=== PATIENT | female | born 1975 | race Caucasian/White ===

== ENCOUNTER → 2016-12-22 | Outpatient (CLI) | payer OTHER ==
[2015-08-03 16:28] VITALS: BP 121/77
[~2016-12-22] MED LIST: HYDR-971 PO; NAPR500T PO; PNV1TABL25 PO
--- NOTE | 2016-12-22 09:03 | RAD ---
Right upper quadrant abdominal ultrasound, 12/22/2016: History: Follow-up hemangiomas The gallbladder is within normal limits in size. There is no sonographic evidence of cholelithiasis. The gallbladder wall is mildly thickened measuring 4 mm. The common hepatic duct measures 4 mm which is within normal limits. No intrahepatic biliary ductal dilatation is seen. There is a 6 mm echogenic focus present anteriorly in the inferior aspect of the left lobe of the liver. There is an additional 1.2 cm echogenic focus in the anterior aspect of the left lobe. The sonographic features are nonspecific, but are compatible with the given history of hemangiomas. No previous ultrasound studies are available at this time for. Comparison. No other hepatic lesion is seen. The visualized portions of the pancreas and right kidney are unremarkable. IMPRESSION: 1. Mild gallbladder wall thickening without evidence of gallstones. This is a nonspecific finding which can be due to a variety of causes including liver disease, hypoproteinemia, renal disease or cholecystitis. 2. Two small echogenic foci in the liver are compatible with the given history of hepatic hemangiomas.
== END | disposition home or self-care (01) ==
LOC: US 06:48
PROVIDERS: ATTEND Family Medicine
DX: N28.9 Disorder of kidney and ureter, unspecified (principal); E77.8 Other disorders of glycoprotein metabolism
CPT/HCPCS: 76705

== ENCOUNTER → 2017-01-14 | Outpatient (CLI) | payer OTHER ==
[2015-08-03 16:28] VITALS: BP 121/77
--- NOTE | 2017-01-14 15:12 | RAD ---
Indication pelvic pain. Initially transabdominal scans were obtained. Initial transabdominal scans were supplemented with transvaginal scans. The uterus measures approximately 11 x 7.2 x 6 cm. The endometrium is mildly thickened at 1.6 cm. The right ovary contains a dominant 1.5 cm cyst. The left ovary was not visualized. No free fluid was seen in the pelvis. IMPRESSION: Mildly thickened endometrium. Right ovarian cyst. Nonvisualization of the left ovary
--- NOTE | 2017-01-14 15:28 | RAD ---
DATE: 01/14/2017 EXAM: DIGITAL SCREEN BILAT W/CAD HISTORY: Routine screening COMPARISON: Baseline study This study was interpreted with the benefit of Computerized Aided Detection (CAD). The breast parenchyma shows scattered fibroglandular densities. Breast parenchyma level B. FINDINGS: No breast mass is identified. No suspicious microcalcifications are seen. Benign-appearing lymph nodes are projected over the left axillary region. IMPRESSION: There is no mammographic evidence of malignancy in either breast. BI-RADS CATEGORY: 1 NEGATIVE RECOMMENDED FOLLOW-UP: 12M 12 MONTH FOLLOW-UP PQRS compliance statement: Patient information was entered into a reminder system with a target due date for the next mammogram. Mammography is a sensitive method for finding small breast cancers, but it does not detect them all and is not a substitute for careful clinical examination. A negative mammogram does not negate a clinically suspicious finding and should not result in delay in biopsying a clinically suspicious abnormality. "Our facility is accredited by the [employer] Mammography Program."
== END | disposition home or self-care (01) ==
LOC: US 14:25
PROVIDERS: ATTEND Family Medicine
DX: Z12.31 Encounter for screening mammogram for malignant neoplasm of breast (principal); N83.201 Unspecified ovarian cyst, right side
CPT/HCPCS: 76830; 76856; G0202; 77067

== ENCOUNTER → 2018-03-27 | Outpatient (CLI) | payer OTHER | END | disposition home or self-care (01) | LOC: US 14:34 | DX: Z12.31 Encounter for screening mammogram for malignant neoplasm of breast (principal); R10.2 Pelvic and perineal pain | CPT/HCPCS: 76830; 76856; 77067 ==

== ENCOUNTER → 2018-04-14 | Outpatient (CLI) | payer OTHER ==
[2015-08-03 16:28] VITALS: BP 121/77
[~2018-04-14] MED LIST changes: +NAPR-683 PO; -NAPR500T PO
--- NOTE | 2018-04-14 15:34 | KCIC ---
Limited abdomen ultrasound History: Abnormal exam previously, follow-up Comparison: December 22, 2016 Findings: Multiple sonographic images of the abdomen are submitted. There is again diffuse coarsening of the hepatic echotexture. There is a 1 x 1 x 1 cm focus of hyperechogenicity of the left lobe of the liver is similar in size. Previously another focus of hyperechogenicity was demonstrated of the liver although not seen on this exam. Gallbladder is present without intraluminal abnormality, wall thickening, pericholecystic fluid. Abdominal aortic caliber is within normal limits up to 2.1 cm. There is segmental visualization of the inferior vena cava. No abnormality is demonstrated of the visualized pancreas. No free fluid is demonstrated. Right lobe of the liver measured 17.2 cm longitudinal. Right kidney measured 10.8 x 5.2 x 5.4 cm, no hydronephrosis. Common bile duct is within normal limits at 0.3 cm. Impression: 1. There is stable focus of hyperechogenicity of the left lobe of the liver more likely due to hemangioma, another focus of hyperechogenicity demonstrated previously not demonstrated on this exam. There is likely hepatic steatosis. Electronically signed by: Yaniv Montelongo MD (04/14/2018 3:31 PM) [facility]
== END | disposition home or self-care (01) ==
LOC: KCIC US 11:05
PROVIDERS: ATTEND Family Medicine
DX: R93.8 Abnormal findings on diagnostic imaging of other specified body structures (principal); R10.11 Right upper quadrant pain
CPT/HCPCS: 76705

== ENCOUNTER 2019-05-26 14:43 | Emergency (ER) | payer SELFPAY ==
[~2019-05-26] VITALS: Ht 177.8 cm; Wt 95.3 kg
[~2019-05-26 14:43] MED LIST changes: +HYDR-3164 PO; -HYDR-971 PO
[2019-05-26] MEDS ORDERED: ASPIRIN CHEWABLE 81 MG TABLET. PO ONE (15:00)
[2019-05-26] MEDS ORDERED: NITROGLYCERIN SUBLINGUAL 0.4 MG BOTTLE OF 25. SL PRN (15:00)
--- NOTE | 2019-05-26 15:27 | RAD ---
PROCEDURE: PORTABLE CHEST 1V CLINICAL INDICATION: Chest pain. COMPARISON: None FINDINGS: No pneumothorax identified. Cardiac and mediastinal contours unremarkable. No pulmonary consolidation or acute airspace disease. No acute osseous abnormalities identified. IMPRESSION: No pulmonary consolidation or acute airspace disease. Electronically signed by: Aleksey Gaffney DO (05/26/2019 3:24 PM) [id number]
--- NOTE | 2019-05-26 16:02 | PHYS DOC ---
Past Medical History Past Medical History: Asthma, High Cholesterol, Hypertension, P.U.D. Additional Past Medical Histor: LOW BACK PAIN Past Surgical History: No Surgical History Alcohol Use: Occasionally Drug Use: None Adult General Chief Complaint Chief Complaint: CHEST PAIN [facility] HPI Patient is a 44 year old left handed female who presents with complaining of chest pain. Patient complaining of sudden onset of left side sharp chest pain while holding her 20 lb baby about an hour prior to arrival to ER. Patient complaining of shortness of breath, palpitation, dizziness and nausea and rated her pain 10 over 10 that gradually decreased to 5/10 at arrival to ER. Patient states the pain getting better with movement of her arm denies injury, history of chest pain, fever and chills, cough and congestion. Review of Systems Review of Systems Constitutional: Denies fever or chills [] Eyes: Denies change in visual acuity, redness, or eye pain [] HENT: Denies nasal congestion or sore throat [] Respiratory: Denies cough, reports shortness of breath [] Cardiovascular: No additional information not addressed in HPI [] GI: Denies abdominal pain, vomiting, bloody stools or diarrhea, reports nausea [] : Denies dysuria or hematuria [] Musculoskeletal: Denies back pain or joint pain [] Integument: Denies rash or skin lesions [] Neurologic: Denies headache, focal weakness or sensory changes [] Endocrine: Denies polyuria or polydipsia [] All other systems were reviewed and found to be within normal limits, except as documented in this note. Current Medications Current Medications Current Medications Medications (Trade) Dose Ordered Sig/[facility] Start Time Stop Time Status Last Admin Dose Admin Aspirin (Children'S Aspirin) 324 mg 1X ONCE 05/26/19 15:00 05/26/19 15:14 DC 05/26/19 15:30 324 MG Nitroglycerin (Nitrostat) 0.4 mg PRN Q5MIN PRN 05/26/19 15:00 05/27/19 14:59 05/26/19 15:30 0.4 MG Allergies Allergies Allergies Coded Allergies Type Severity Reaction Last Updated Verified No Known Drug Allergies 04/14/17 No Physical Exam Physical Exam Constitutional: Well developed, well nourished, mild distress, non-toxic a ppearance. [] HENT: Normocephalic, atraumatic. Eyes: PERRLA, EOMI, conjunctiva normal, no discharge. [] Neck: Normal range of motion, no tenderness, supple, no stridor. [] Cardiovascular:Heart rate regular rhythm, no murmur [] Lungs & Thorax: Bilateral breath sounds clear to auscultation , reproducible left chest pain[] Abdomen: Bowel sounds normal, soft, no tenderness, no masses, no pulsatile masses. [] Skin: Warm, dry, no erythema, no rash. [] Back: No tenderness, no CVA tenderness. [] Extremities: No tenderness, no cyanosis, no clubbing, ROM intact, no edema. [] Neurologic: Alert and oriented X 3, no focal deficits noted. [] Psychologic: Affect anxious, judgement normal, mood normal. [] Current Patient Data Vital Signs Vital Signs Date Time Temp Pulse Resp B/P (MAP) Pulse Ox O2 Delivery O2 Flow Rate FiO2 05/26/19 15:31 72 132/68 (89) 05/26/19 15:07 98.6 98 98.6 Lab Values Laboratory Tests Test 05/26/19 16:10 White Blood Count 3.3 x10^3/uL (4.0-11.0) L Red Blood Count 4.12 x10^6/uL (3.50-5.40) Hemoglobin 13.1 g/dL (12.0-15.5) Hematocrit 39.0 % (36.0-47.0) Mean Corpuscular Volume 95 fL (79-100) Mean Corpuscular Hemoglobin 32 pg (25-35) Mean Corpuscular Hemoglobin Concent 34 g/dL (31-37) Red Cell Distribution Width 13.3 % (11.5-14.5) Platelet Count 206 x10^3/uL (140-400) Neutrophils (%) (Auto) 41 % (31-73) Lymphocytes (%) (Auto) 49 % (24-48) H Monocytes (%) (Auto) 8 % (0-9) Eosinophils (%) (Auto) 3 % (0-3) Basophils (%) (Auto) 1 % (0-3) Neutrophils # (Auto) 1.4 x10^3/uL (1.8-7.7) L Lymphocytes # (Auto) 1.6 x10^3/uL (1.0-4.8) Monocytes # (Auto) 0.3 x10^3/uL (0.0-1.1) Eosinophils # (Auto) 0.1 x10^3/uL (0.0-0.7) Basophils # (Auto) 0.0 x10^3/uL (0.0-0.2) Prothrombin Time 12.7 SEC (11.7-14.0) Prothrombin Time INR 1.0 (0.8-1.1) Sodium Level 143 mmol/L (136-145) Potassium Level 4.0 mmol/L (3.5-5.1) Chloride Level 107 mmol/L (98-107) Carbon Dioxide Level 29 mmol/L (21-32) Anion Gap 7 (6-14) Blood Urea Nitrogen 11 mg/dL (7-20) Creatinine 0.7 mg/dL (0.6-1.0) Estimated GFR (Cockcroft-Gault) 90.1 BUN/Creatinine Ratio 16 (6-20) Glucose Level 87 mg/dL (70-99) Calcium Level 9.4 mg/dL (8.5-10.1) Magnesium Level 2.2 mg/dL (1.8-2.4) Total Bilirubin 0.6 mg/dL (0.2-1.0) Aspartate Amino Transferase (AST) 15 U/L (15-37) Alanine Aminotransferase (ALT) 14 U/L (14-59) Alkaline Phosphatase 77 U/L (46-116) Creatine Kinase 235 U/L (26-192) H Troponin I Quantitative < 0.017 ng/mL (0.000-0.055) OX-[id number]-Type Natriuretic Peptide 59 pg/mL (0-124) Total Protein 7.0 g/dL (6.4-8.2) Albumin 3.6 g/dL (3.4-5.0) Albumin/Globulin Ratio 1.1 (1.0-1.7) Lipase 72 U/L (73-393) L Laboratory Tests 05/26/19 16:10 Laboratory Tests 05/26/19 16:10 EKG EKG EKG interpreted by me. EKG at 1451 showed normal sinus rhythm at rate of 68, leftward axis, poor R-wave progress in anteroseptal leads, no acute ST and T- wave elevation. Radiology/Procedures Radiology/Procedures [][facility] [address] [place] [address] IMAGING REPORT Signed PATIENT: OMER ARIAS ACCOUNT: [id number] : 1975 LOCATION: ER AGE: 44 SEX: F EXAM STATUS: REG ER ORD. PHYSICIAN: PEÑA OSCAR MD REASON: chest pain PROCEDURE: PORTABLE CHEST 1V PROCEDURE: PORTABLE CHEST 1V CLINICAL INDICATION: Chest pain. COMPARISON: None FINDINGS: No pneumothorax identified. Cardiac and mediastinal contours unremarkable. No pulmonary consolidation or acute airspace disease. No acute osseous abnormalities identified. IMPRESSION: No pulmonary consolidation or acute airspace disease. Electronically signed by: Aleksey Gaffney DO (05/26/2019 3:24 PM) [facility] DICTATED and SIGNED BY: ALEKSEY GAFFNEY DO DATE: 05/26/19 1524 Course & Med Decision Making Course & Med Decision Making Pertinent Labs and Imaging studies reviewed. (See chart for details) Evaluation of patient in ER showed 44-year-old female patient with complaining of left-sided chest pain. Patient had anxiety after loss of her daughter. Had reproducible chest wall pain and elevation of CK. Chest pain resolved after nitroglycerin �1. Patient wants to go home and follow up with her primary care physician as outpatient regarding more cardiac evaluation. Dragon Disclaimer Dragon Disclaimer This electronic medical record was generated, in whole or in part, using a voice recognition dictation system. Departure Departure Impression: Primary Impression: Musculoskeletal chest pain Additional Impression: Leukopenia Disposition: HOME, SELF-CARE (at 1710) Condition: IMPROVED Referrals: SARA CAGLE MD (PCP) Patient Instructions: Chest Wall Pain Additional Instructions: Drink plenty of liquids Follow-up with your primary care physician in 2-3 days for more cardiac evaluation Return to ER if not getting better Take [id number] Tylenol or ibuprofen as needed for pain The HEART Score for CP Pts HEART Score for Chest Pain: HEART Score for Chest Pain Response (Comments) Value History Moderately Suspicious 1 ECG Nonspecific Repolarizatio 1 Age >45 - < 65 1 Risk Factors >3 Risk Factors or Hx CAD 2 Troponin < Normal Limit 0 Total 5 Risk Factors: Risk Factors: DM, Current or recent (<one month) smoker, HTN, HLP, family history of CAD, obesity. Risk Scores: Score 0 - 3: 2.5% MACE over next 6 weeks - Discharge Home Score 4 - 6: 20.3% MACE over next 6 weeks - Admit for Clinical Observation Score 7 - 10: 72.7% MACE over next 6 weeks - Early Invasive Strategies Problem Qualifiers Additional Impression: Leukopenia Leukopenia type: unspecified Qualified Codes: D72.819 - Decreased white blood cell count, unspecified PEÑA OSCAR MD May 26, 2019 16:02
[2019-05-26 16:23] LABS: BASO % 1 % (0-3); EOS # 0.1 x10^3/uL (0.0-0.7); EOS % 3 % (0-3); HEMOGLOBIN 13.1 g/dL (12.0-15.5); LYMPH # 1.6 x10^3/uL (1.0-4.8); LYMPH % 49 % (24-48); MEAN CORPUSCULAR HEMOGLOBIN 32 pg (25-35); MEAN CORPUSCULAR HGB CONC 34 g/dL (31-37); MEAN CORPUSCULAR VOLUME 95 fL (79-100); MONO # 0.3 x10^3/uL (0.0-1.1); MONO % 8 % (0-9); NEUT # 1.4 x10^3/uL (1.8-7.7); NEUT % 41 % (31-73); PLATELET COUNT 206 x10^3/uL (140-400); RED BLOOD COUNT 4.12 x10^6/uL (3.50-5.40); RED CELL DISTRIBUTION WIDTH 13.3 % (11.5-14.5); WHITE BLOOD COUNT 3.3 x10^3/uL (4.0-11.0)
[2019-05-26 16:34] LABS: CALCIUM 9.4 mg/dL (8.5-10.1); CREATININE 0.7 mg/dL (0.6-1.0); GFR 90.1
[2019-05-26 16:39] LABS: PROTHROMBIN TIME PATIENT 12.7 SEC (11.7-14.0)
[2019-05-26 16:42] LABS: ALBUMIN 3.6 g/dL (3.4-5.0); ALBUMIN/GLOBULIN RATIO 1.1 (1.0-1.7); MAGNESIUM 2.2 mg/dL (1.8-2.4); TOTAL BILIRUBIN 0.6 mg/dL (0.2-1.0)
[2019-05-26 16:52] VITALS: BP 125/75
--- NOTE | 2019-05-27 11:12 | EKG ---
[facility] [address] [place] [address] Test Date: 2019-05-26 Test Time: 14:51:47 Pat Name: OMER ARIAS Department: Room: Gender: F Licensed Mental Health Counselor: : 1975 Requested By: PEÑA OSCAR Order Number: [id number] Reading MD: Measurements Intervals [place] Rate: 68 P: 23 [place]: 176 QRS: -21 QRSD: 84 T: 18 QT: 392 QTc: 417 Interpretive Statements SINUS RHYTHM LEFTWARD AXIS QRS(T) CONTOUR ABNORMALITY CONSIDER ANTEROSEPTAL MYOCARDIAL DAMAGE POSSIBLY ABNORMAL ECG RI6.01 No previous ECG available for comparison
== END 2019-05-26 17:33 | disposition home or self-care (01) ==
LOC: ER 14:43
DX: R07.89 Other chest pain (principal); D72.819 Decreased white blood cell count, unspecified; E78.00 Pure hypercholesterolemia, unspecified; J45.909 Unspecified asthma, uncomplicated; I10 Essential (primary) hypertension; F41.9 Anxiety disorder, unspecified
CPT/HCPCS: 36415; 71045; 80053; 82550; 83690; 83735; 83880; 84484; 85025; 85610; 93005; 99285-25

== ENCOUNTER → 2019-07-11 | Outpatient (CLI) | payer OTHER ==
--- NOTE | 2019-07-13 13:39 | RAD ---
DATE: 07/11/2019. EXAM: DIGITAL SCREEN BILAT W/CAD. HISTORY: Routine mammographic screening. COMPARISON: 03/27/2018. This study was interpreted with the benefit of Computerized Aided Detection (CAD). FINDINGS: Breast Density: SCATTERED The breast parenchyma shows scattered fibroglandular densities. Breast parenchyma level B.. A small cluster of round and punctate calcifications inferomedially is stable and benign. There are no suspicious masses, microcalcifications or architectural distortion. The parenchymal pattern is stable. BI-RADS CATEGORY: 2 BENIGN FINDING(S). RECOMMENDED FOLLOW-UP: 12M 12 MONTH FOLLOW-UP. PQRS compliance statement: Patient information was entered into a reminder system with a target due date 07/11/2020 for the next mammogram. Mammography is a sensitive method for finding small breast cancers, but it does not detect all and is not a substitute for careful clinical examination. A negative mammogram does not negate a clinically suspicious finding and should not result in delay in biopsying a clinically suspicious abnormality. "Our facility is accredited by the [employer] Mammography Program."
== END | disposition home or self-care (01) ==
LOC: MAMMO 14:59
PROVIDERS: ATTEND Family Medicine
DX: Z12.31 Encounter for screening mammogram for malignant neoplasm of breast (principal); N64.89 Other specified disorders of breast
CPT/HCPCS: 77067

== ENCOUNTER → 2020-12-24 | Outpatient (CLI) | payer OTHER ==
--- NOTE | 2020-12-25 12:03 | RAD ---
INDICATION: 45 years of age asymptomatic female patient presents for screening mammography. TECHNIQUE: Full field craniocaudal and mediolateral oblique images of both breasts were obtained usi ng digital technique with tomosynthesis and also analyzed with computer-aided detection software. COMPARISON: Prior mammographic imaging dating back to 07/11/2019, 03/27/2018, 01/14/2017. BREAST COMPOSITION: Category B: There are scattered fibroglandular densities. FINDINGS: The parenchymal pattern appears stable. No suspicious masses, microcalcifications or architectural distortion is present to suggest malignanc y in either breast. The visualized axillae are unremarkable. IMPRESSION: No mammographic evidence of malignancy. RECOMMENDATION: Annual screening mammography is recommended, unless clinically indicated sooner based on symptoms or change in physical exam. BIRADS 2: BENIGN This study was interpreted with the benefit of Computerized Aided Detection (CAD). Patient information is entered into the reminder system with a target due date for the next screening mammogram. Mammography is the most sensitive method for finding small breast cancers, but it does not detect the m all and is not a substitute for careful clinical examination. A negative mammogram does not negate a clinically suspicious finding and should not result in delay in biopsying a clinically suspicious a bnormality. "Our facility is accredited by the [employer] Mammography Program." Electronically signed by: Eduardo Tipton MD (12/25/2020 12:00 PM) [facility]
== END ==
LOC: MAMMO 10:13
PROVIDERS: ATTEND Obstetrics & Gynecology
DX: Z12.31 Encounter for screening mammogram for malignant neoplasm of breast (principal)
CPT/HCPCS: 77063; 77067

== ENCOUNTER → 2021-01-26 | Outpatient (CLI) | payer OTHER ==
--- NOTE | 2021-01-26 16:27 | RAD ---
EXAM: Pelvic sonogram. HISTORY: Menorrhagia. TECHNIQUE: Sonographic imaging of the pelvis was performed. COMPARISON: 03/27/2018. FINDINGS: The uterus measures 10.2 x 6.3 x 6.0 cm. The endometrial stripe measures 7.4 mm in thicknes s. There is trace fluid within the endometrial cavity, measuring less than 2 mm in thickness. The ova kenny are normal in size and demonstrate normal blood flow. There is a 1.9 cm dominant right ovarian f ollicle/follicular cyst. There is a small amount of pelvic free fluid. IMPRESSION: 1. Trace fluid within the endometrial cavity. This may be due to blood products given history of mak rrhagia. The endometrial stripe is normal in thickness. 2. 1.9 cm physiologic dominant right ovarian follicle/follicular cyst. 3. Small amount of pelvic free fluid, within physiologic limits for a premenopausal female. Electronically signed by: Daphney Fischer MD (01/26/2021 4:25 PM) [id number]
== END ==
LOC: US 15:44
PROVIDERS: ATTEND Obstetrics & Gynecology
DX: N92.0 Excessive and frequent menstruation with regular cycle (principal)
CPT/HCPCS: 76830; 76856